=== PATIENT | female | born 1980 | race Caucasian/White ===

== ENCOUNTER 2018-12-19 10:51 | Day surgery (SDC) | payer BC ==
[~2018-12-19] VITALS: Ht 157.5 cm; Wt 55.2 kg
[~2018-12-19 10:51] MED LIST: CALCIUM500 MG PO; PRENATAL1 TA1 PO
[2018-12-19 11:13] VITALS: BP 123/80; PULSE 73; TEMP 98.1
[2018-12-19] MEDS ORDERED: MULTI VITAMINS1 TAB PO (11:37)
[2018-12-19] MEDS ORDERED: CALCIUM CITRAT950 MG PO (11:39)
[2018-12-19] MEDS ORDERED: ZYRTEC 10MG10 MG PO (11:40)
[2018-12-19] MEDS ORDERED: FLONASEALLERGY NS (11:41)
[2018-12-19 13:59] VITALS: BP 98/68; PULSE 70
--- NOTE | 2018-12-19 13:59 | NUR ---
Patient returns to room 3 per cart from surgery and is awake and alert. Room air sats 99% and temp 97.6. Post op shoe on the left foot and diana wrap dressing dry. Toes warm and pink. Drinking Sprite and denies pain or nausea. IV infusing and Dr. Brooks in the room talking with the patient and spouse.
[2018-12-19 14:14] VITALS: BP 113/70; PULSE 62
--- NOTE | 2018-12-19 14:14 | NUR ---
Room air sats 97%. Talking with spouse.
[2018-12-19 14:29] VITALS: BP 115/75; PULSE 63
--- NOTE | 2018-12-19 14:29 | NUR ---
Room air sats 100%. Offers no complaints of pain or nausea.
--- NOTE | 2018-12-19 14:44 | NUR ---
IV discontinued and dresses self.
--- NOTE | 2018-12-19 14:54 | NUR ---
Signs dismissal instructions and voices understanding of home cares and follow up will be scheduled by Dr. Brooks. Patient dismissed to home per private vehicle driven by spouse and taken to the front door per wheelchair by Barbara DANIELS.
== END 2018-12-19 14:54 | disposition home or self-care (01) ==
LOC: SDCO 10:51
DX: M20.12 Hallux valgus (acquired), left foot (principal); M21.612 Bunion of left foot; Z79.51 Long term (current) use of inhaled steroids
CPT/HCPCS: J0690; J2704; J3010; J7120

== ENCOUNTER 2019-02-13 10:45 | Day surgery (SDC) | payer BC ==
[~2019-02-13] VITALS: Ht 157.5 cm; Wt 55.8 kg
[~2019-02-13 10:45] MED LIST changes: +CALCIUM CITRAT950 MG PO; +FLONASEALLERGY NS; +MULTI VITAMINS1 TAB PO; +ZYRTEC 10MG10 MG PO
[2019-02-13 11:16] VITALS: BP 122/85; PULSE 76; TEMP 97.9
--- NOTE | 2019-02-13 11:22 | NUR ---
TO RM 4 AT 1057- CALL LIGHT IN REACH AT BEDSIDE
[2019-02-13 13:49] VITALS: BP 107/80; PULSE 81; TEMP 97.7
[2019-02-13 14:05] VITALS: BP 103/79; PULSE 71
--- NOTE | 2019-02-13 14:05 | NUR ---
DRESSING CLEAN DRY INTACT. PATIENT IN POST OP SHOE. RECEIVED SPRITE AND VICKIE CRACKERS. DENIES PAIN OR DISCOMFORT. DENIES NAUSEA
[2019-02-13] MEDS ORDERED: PERCOCET 325 MG1 TA2 PO (14:06)
[2019-02-13 14:20] VITALS: BP 102/71; PULSE 68
--- NOTE | 2019-02-13 14:20 | NUR ---
ATE 100% AND TOLERATED WELL
--- NOTE | 2019-02-13 14:25 | NUR ---
RECEIVED DISCHARGE INSTRUCTIONS AND VERBALIZED UNDERSTANDING, AT BEDSIDE. DISCONTINUED IV AND INT-CATHETER INTACT.
--- NOTE | 2019-02-13 14:30 | NUR ---
DISCHARGED PER WC BY NURSING STAFF TO PRIVATE CAR IN CARE OF -ALEX.
--- NOTE | 2019-02-13 14:37 | NUR ---
TO RM 4 PER CART FROM OR. ACCOMPANIED BY ANESTHESIA,OR NURSE AND DR GAXIOLA. ALERT ORIENTED X3, TALKING WITH STAFF AND . DR GAXIOLA TALKING WITH PATIET AND
== END 2019-02-13 14:51 | disposition home or self-care (01) ==
LOC: SDCO 10:45
DX: M20.11 Hallux valgus (acquired), right foot (principal); M21.611 Bunion of right foot; J30.2 Other seasonal allergic rhinitis; F32.9 Major depressive disorder, single episode, unspecified; J44.9 Chronic obstructive pulmonary disease, unspecified; I10 Essential (primary) hypertension; E78.00 Pure hypercholesterolemia, unspecified; M81.0 Age-related osteoporosis without current pathological fracture; Z86.73 Personal history of transient ischemic attack (TIA), and cerebral infarction without residual deficits; Z80.9 Family history of malignant neoplasm, unspecified; Z90.79 Acquired absence of other genital organ(s); Z79.51 Long term (current) use of inhaled steroids
CPT/HCPCS: J0690; J2704; J3010; J7120

== ENCOUNTER → 2020-05-20 | Outpatient (CLI) | payer BC ==
[~2020-05-20] MED LIST changes: +PERCOCET 325 MG1 TA2 PO
== END ==
LOC: MC.RAD 08:41
DX: Z12.31 Encounter for screening mammogram for malignant neoplasm of breast (principal); N64.4 Mastodynia

== ENCOUNTER → 2020-06-23 | Outpatient (CLI) | payer BC ==
[2020-06-23 14:44] LABS: BASO % 0.5 % (0.0-2.0); EOS # 0.1 (0.0-0.7); EOS % 1.1 % (0-4.0); GRAN # 4.1 (1.4-6.5); GRAN % 61.3 % (42.2-75.2); HEMATOCRIT 43.2 % (37.0-47.0); HEMOGLOBIN 14.8 g/dl (12.5-16.0); LYMPH # 2.1 (1.2-3.4); MEAN CELL VOLUME 87 fl (80.0-100.0); MEAN CORPUSCULAR HEMOGLOBIN 30 pg (27.0-31.0); MEAN CORPUSCULAR HGB CONC 34 g/dl (33.0-37.0); MEAN PLATELET VOLUME 11.1 fl (7.4-10.4); MONO # 0.4 (0.1-0.6); MONO % 5.9 % (1.7-9.3); PLATELET COUNT 330 K/mm3 (130-400); RED BLOOD COUNT 4.97 M/mm3 (4.10-5.30); REDCELL DISTRIBUTION WIDTH-CV 11.6 % (11.5-14.5)
[2020-06-23 14:55] LABS: ALBUMIN 5.1 gm/dL (3.5-5.0); BILIRUBIN,TOTAL 0.8 mg/dL (0.0-1.0); CALCIUM 10.1 mg/dL (8.4-10.2); CREATININE, serum 0.7 (0.52-1.25); POTASSIUM 4.2 mmol/L (3.4-5.0); TOTAL PROTEIN 8.1 gm/dL (6.4-8.2)
[2020-06-23 15:25] LABS: TSH w REFLEX 1.88 uIU/mL (0.465-4.680)
== END ==
LOC: COL.RAD 13:48 → COL.LAB 13:52 → COL.RAD 13:52
PROVIDERS: Family Medicine
DX: R00.0 Tachycardia, unspecified (principal); R07.89 Other chest pain

== ENCOUNTER → 2021-09-21 | Outpatient (CLI) | payer BC | LOC: MC.RAD 08:12 | DX: Z12.31 Encounter for screening mammogram for malignant neoplasm of breast (principal) ==